=== PATIENT | female | born 1980 | race Caucasian/White ===

== ENCOUNTER 2019-07-09 08:22 | Day surgery (SDC) | payer OTHER ==
[~2019-07-09] VITALS: Ht 144.8 cm; Wt 72.6 kg
[2019-07-09] MEDS ORDERED: GELATIN SPONGE 100 1 SPG TP ONE (10:08)
[2019-07-09] MEDS ORDERED: BUPIVACAINE-MPF/EPI 0.5% 30 ML VIAL INJ ONE (10:08)
[2019-07-09] MEDS ORDERED: ONDANSETRON 4 MG/2 ML VIAL ONE (10:31)
[2019-07-09] MEDS ORDERED: SUCCINYLCHOLINE CHLORIDE 200 MG/10 ML VIAL IVP ONE (10:31)
[2019-07-09] MEDS ORDERED: LIDOCAINE 2% 100 MG/5 ML SYR IVP ONE (10:31)
[2019-07-09] MEDS ORDERED: KETOROLAC 30 MG/ML VIAL ONE (10:31)
[2019-07-09] MEDS ORDERED: DESFLURANE 240 ML BTL INH ONE (10:31)
[2019-07-09] MEDS ORDERED: DEXAMETHASONE 4 MG/ML VIAL ONE (10:31)
[2019-07-09] MEDS ORDERED: PROPOFOL 200 MG/20 ML VIAL IV ONE (10:31)
[2019-07-09] MEDS ORDERED: SCOPOLAMINE 1.5 MG/72 HR PATCH TD ONE (10:32)
[2019-07-09] MEDS ORDERED: MIDAZOLAM 2 MG/2 ML VIAL ONE (10:35)
[2019-07-09] MEDS ORDERED: fentaNYL 0.05 MG/ML VIAL ONE (10:36)
[2019-07-09] MEDS ORDERED: HYDROmorphone 1 MG/ML AMP IVP PRN (11:30)
[2019-07-09] MEDS ORDERED: ONDANSETRON 4 MG/2 ML VIAL IVP PRN (11:30)
[2019-07-09] MEDS ORDERED: LIDOCAINE 2% 100 MG/5 ML UJET TP ONE (11:30)
== END 2019-07-09 13:20 | disposition home or self-care (01) ==
LOC: MOR 08:22 → MMU 08:23 → MOR 13:20
PROVIDERS: ATTEND Surgery
DX: K64.8 Other hemorrhoids (principal); K64.4 Residual hemorrhoidal skin tags; K62.5 Hemorrhage of anus and rectum; I10 Essential (primary) hypertension; F32.9 Major depressive disorder, single episode, unspecified; M19.90 Unspecified osteoarthritis, unspecified site; E66.9 Obesity, unspecified; Z98.51 Tubal ligation status; E66.3 Overweight; Z98.890 Other specified postprocedural states
CPT/HCPCS: 46260; 71045; 88304; J0330; J0690; J1100; J1885; J2001; J2250; J2405; J2704; J3010; J3490; J7060; J7120